=== PATIENT | male | born 1985 | race Caucasian/White ===

== ENCOUNTER 2021-12-24 12:09 | Emergency (ER) | payer OTHER ==
[~2021-12-24] VITALS: Ht 160 cm; Wt 73.0 kg
[2021-12-24 14:06] LABS: BASOPHILS % 0.5 % (0.0-2.0); EOSINOPHILS % 1.4 % (0.0-5.0); HEMATOCRIT. 43.5 % (42.0-52.0); HEMOGLOBIN. 14.5 g/dL (14.0-18.0); LYMPHOCYTES % 21.4 % (20.0-50.0); MEAN CORPUSCULAR HEMOGLOBIN 29.6 pg (28.0-32.0); MEAN CORPUSCULAR VOLUME 88.5 fL (80.0-94.0); MEAN PLATELET VOLUME 8.8 fl (7.4-10.4); MONOCYTES % 8.4 % (2.0-8.0); NEUTROPHILS % 68.3 % (40.0-76.0); PLATELET 227 x1000/uL (130-400); RED BLOOD CELL COUNT 4.91 mill/uL (4.7-6.1); RED CELL DISTRIBUTION WIDTH 13.5 % (11.6-14.6)
[2021-12-24 14:12] LABS: CHLORIDE 106 mEq/L (98-107)
[2021-12-24 14:20] LABS: ETHANOL BLOOD < 10 mg/dL
[2021-12-24] MEDS ORDERED: IBUPROFEN 800MG TABLET PO ONE (15:00)
[2021-12-24] MEDS: TAMSULOSIN HCL 0.4MG SR CAPSULE PO SCH (15:36)
[2021-12-24 15:51] LABS: CLARITY URINE CLEAR (CLEAR); COLOR URINE YELLOW (YELLOW); KETONES URINE 1+ (NEGATIVE); LEUKOCYTE ESTERASE URINE NEGATIVE (NEGATIVE); NITRITE URINE NEGATIVE (NEGATIVE); OCCULT BLOOD URINE NEGATIVE (NEGATIVE); PROTEIN URINE NEGATIVE (NEGATIVE); SPECIFIC GRAVITY URINE 1.019 (1.005-1.030)
[2021-12-24] MEDS ORDERED: BUSPIRONE HCL 5MG TABLET PO PRN (16:00)
[2021-12-24 16:11] LABS: *AMPHETAMINES SCREEN URINE NEGATIVE (NEGATIVE); *BARBITURATES SCREEN URINE NEGATIVE (NEGATIVE); *BENZODIAZEPINES SCREEN URINE NEGATIVE (NEGATIVE); *COCAINE SCREEN URINE NEGATIVE (NEGATIVE); CANNABINOID URINE SCREEN PRESUMTIVE POSITIVE (NEGATIVE); METHADONE URINE SCREEN NEGATIVE (NEGATIVE); OPIATES URINE SCREEN NEGATIVE (NEGATIVE); PHENCYCLIDINE URINE SCREEN NEGATIVE (NEGATIVE)
[2021-12-24] MEDS: SERTRALINE HCL 100MG TABLET PO SCH (16:56)
[2021-12-24] MEDS: ARIPIPRAZOLE 2MG TABLET PO SCH (16:56)
[2021-12-25] MEDS ORDERED: IBUPROFEN 800MG TABLET PO PRN (09:15)
[2021-12-25] MEDS ORDERED: HYDROCODONE/ACETAMINOPHEN 5/325MG TABLET PO ONE (09:15)
[2021-12-25] MEDS: TAMSULOSIN HCL 0.4MG SR CAPSULE PO SCH (09:21)
[2021-12-25] MEDS: ARIPIPRAZOLE 2MG TABLET PO SCH (09:21)
[2021-12-25] MEDS: SERTRALINE HCL 100MG TABLET PO SCH (09:21)
[2021-12-25 10:08] VITALS: BP 131/91
== END 2021-12-25 13:17 | disposition home or self-care (01) ==
LOC: ER 13:12
DX: F32.A Depression, unspecified (principal); U07.1 COVID-19; N13.2 Hydronephrosis with renal and ureteral calculous obstruction; R45.851 Suicidal ideations; Z75.1 Person awaiting admission to adequate facility elsewhere
CPT/HCPCS: 36415; 74176; 80053; 80305; 80320; 81003; 85025; 99285; C9803; U0003; U0005; G0480

== ENCOUNTER 2021-12-28 16:08 | Emergency (ER) | payer OTHER ==
[~2021-12-28] VITALS: Ht 165.1 cm; Wt 75.0 kg
[2021-12-28 19:20] LABS: BASOPHILS % 0.7 % (0.0-2.0); EOSINOPHILS % 1.5 % (0.0-5.0); HEMATOCRIT. 44.6 % (42.0-52.0); LYMPHOCYTES % 34.2 % (20.0-50.0); MEAN CORPUSCULAR HEMOGLOBIN 30.1 pg (28.0-32.0); MEAN CORPUSCULAR VOLUME 89.4 fL (80.0-94.0); MEAN PLATELET VOLUME 8.9 fl (7.4-10.4); MONOCYTES % 6.6 % (2.0-8.0); PLATELET 228 x1000/uL (130-400); RED BLOOD CELL COUNT 4.99 mill/uL (4.7-6.1); RED CELL DISTRIBUTION WIDTH 13.5 % (11.6-14.6)
[2021-12-28 19:20] LABS: CLARITY URINE CLEAR (CLEAR); COLOR URINE YELLOW (YELLOW); KETONES URINE NEGATIVE (NEGATIVE); LEUKOCYTE ESTERASE URINE NEGATIVE (NEGATIVE); NITRITE URINE NEGATIVE (NEGATIVE); OCCULT BLOOD URINE NEGATIVE (NEGATIVE); PROTEIN URINE NEGATIVE (NEGATIVE); SPECIFIC GRAVITY URINE 1.017 (1.005-1.030); UROBILINOGEN URINE 0.2 E.U./dL (0.2-1.0)
[2021-12-28 19:28] LABS: CHLORIDE 104 mEq/L (98-107)
[2021-12-28 19:36] LABS: ETHANOL BLOOD < 10 mg/dL
[2021-12-28 19:45] LABS: *AMPHETAMINES SCREEN URINE NEGATIVE (NEGATIVE); *BARBITURATES SCREEN URINE NEGATIVE (NEGATIVE); *BENZODIAZEPINES SCREEN URINE NEGATIVE (NEGATIVE); *COCAINE SCREEN URINE NEGATIVE (NEGATIVE); CANNABINOID URINE SCREEN NEGATIVE (NEGATIVE); METHADONE URINE SCREEN NEGATIVE (NEGATIVE); OPIATES URINE SCREEN NEGATIVE (NEGATIVE); PHENCYCLIDINE URINE SCREEN NEGATIVE (NEGATIVE)
[2021-12-29] MEDS: SERTRALINE HCL 100MG TABLET PO SCH (11:25)
[2021-12-29] MEDS: ACETAMINOPHEN 325MG TABLET PO ONE (17:47)
[2021-12-30 04:10] VITALS: BP 123/92
== END 2021-12-30 04:30 | disposition short-term general hospital (02) ==
LOC: ER 16:08
DX: F32.A Depression, unspecified (principal); F41.9 Anxiety disorder, unspecified; R45.851 Suicidal ideations; F12.10 Cannabis abuse, uncomplicated; K58.9 Irritable bowel syndrome, unspecified; Z86.16 Personal history of COVID-19; Z98.890 Other specified postprocedural states; Z20.822 Contact with and (suspected) exposure to COVID-19
CPT/HCPCS: 36415; 80053; 80305; 80307; 80320; 80329; 81003; 85025; 99285; C9803; U0003; U0005; G0480